=== PATIENT | male | born 1980 | race African-American/Black ===

== ENCOUNTER 2025-05-02 16:32 | Inpatient (IN) | payer OTHER ==
[~2025-05-02] VITALS: Ht 185.4 cm; Wt 88.0 kg
[~2025-05-02 16:32] MED LIST: ALBU6.7H15 INH; AMLO10TA80 PO; ASPI-1406 PO; ATOR20TA PO; HYDR100T11 PO; INSHUMSS SUBCUT; INSU100I28 SQ; LABE100T9 PO; LOSA50TA41 PO
[2025-05-02] MEDS ORDERED: BLOOD SUGAR DIAGNOSTIC STRIP TEST PRN (17:00)
[2025-05-02] MEDS ORDERED: INSULIN REGULAR (DRIP) 100 UNITS in SODIUM CHLORIDE 0.9% 99 ML IV SCH (17:00)
[2025-05-02] MEDS ORDERED: SODIUM PHOSPHATE 15 MMOL in SODIUM CHLORIDE 0.9% 245 ML IV PRN (17:00)
[2025-05-02] MEDS ORDERED: DEXTROSE 50% WATER 50ML SYRINGE IV PRN (17:00)
[2025-05-02] MEDS ORDERED: POTASSIUM CHLORIDE 40 MEQ in SODIUM CHLORIDE 0.9% 230 ML IV PRN (17:00)
[2025-05-02] MEDS: DEXT 5%/0.9% NACL 1,000 ML IV SCH (17:00)
[2025-05-02] MEDS ORDERED: MAGNESIUM 2 G PREMIX 50 ML IV PRN (17:00)
[2025-05-02] MEDS: BLOOD SUGAR DIAGNOSTIC STRIP TEST SCH ×2 (17:07)
[2025-05-02] MEDS: LACTATED RINGERS IV ONE (17:18)
[2025-05-02] MEDS: SODIUM CHLORIDE 0.9% 1,000 ML IV SCH (17:30)
[2025-05-02 18:08] LABS: HEMATOCRIT. 49.6 % (42.0-52.0); HEMOGLOBIN. 15.3 g/dL (14.0-18.0); MEAN PLATELET VOLUME 10.4 fl (7.4-10.4); PLATELET 183 x1000/uL (130-400); RED BLOOD CELL COUNT 5.89 mill/uL (4.7-6.1); RED CELL DISTRIBUTION WIDTH 18.1 % (11.6-14.6)
[2025-05-02] MEDS ORDERED: CLONIDINE 0.2MG TABLET PO ONE (18:15)
[2025-05-02] MEDS: HYDRALAZINE 20MG/ML VIAL IV ONE (18:18)
[2025-05-02] MEDS: CLONIDINE 0.1MG TABLET PO SCH (18:29)
[2025-05-02] MEDS ORDERED: CLONIDINE 0.1MG TABLET PO ONE (18:30)
[2025-05-02 18:51] LABS: UREA NITROGEN BLOOD 63 mg/dL (9-23)
[2025-05-02] MEDS: LABETALOL 5MG/ML 4ML INJ IV ONE (18:51)
[2025-05-02 18:53] LABS: BILIRUBIN TOTAL 0.4 mg/dL (0.1-1.0); PHOSPHORUS 7.5 mg/dL (2.5-4.9); PROTEIN TOTAL 8.6 g/dL (6.0-8.3)
[2025-05-02] MEDS: INSULIN REGULAR 100U/100ML PMX 100 ML IV SCH (18:57)
[2025-05-02 19:04] LABS: BG BASE EXCESS -18.7 mmol/L (-2.0-3.0); BG CARBOXYHEMOGLOBIN 0.7 % (0.5-1.5); BG DEOXYHEMOGLOBIN 1.7 % (0.0-5.0); BG FRACTION INSPIRED OXYGEN 21; BG HCO3 ACT 5.2 mmol/L (21.0-28.0); BG METHEMOGLOBIN 0.2 % (0.5-1.5); BG OXYGEN SATURATION 98.3 % (94.0-98.0); BG OXYHEMOGLOBIN 97.4 % (94.0-98.0); BG PCO2 12.0 mmHg (35.0-48.0); BG PH 7.258 (7.350-7.450); BG PO2 126.9 mmHg (83.0-108.0); BG SAMPLE SITE RIGHT RADIAL; BG TOTAL HEMOGLOBIN 15.2 g/dL (13.5-17.5); BG VENT MODE ROOM AIR
[2025-05-02] MEDS: KCL 20MEQ/100ML PREMIX 100 ML IV PRN (19:04)
[2025-05-02 19:07] LABS: ASPARTATE AMINOTRANSFERASE < 8 IU/L (<34); CREATININE 3.7 mg/dL (0.6-1.3)
[2025-05-02 19:18] LABS: LYMPHOCYTES % MANUAL 6.0 % (20.0-50.0); MONOCYTES % MANUAL 9.0 % (2.0-8.0); NEUTROPHILS % MANUAL 85.0 % (45.0-75.0); PLATELET ESTIMATE NORMAL
[2025-05-02 23:01] VITALS: BP 145/105; PULSE 104; RESP 24; TEMP 37.5; O2SAT 97
[2025-05-02 23:15] VITALS: BP 139/97; PULSE 106; RESP 25; O2SAT 98
[2025-05-02 23:30] VITALS: BP 156/103; PULSE 108; RESP 25; O2SAT 98
[2025-05-03] VITALS (82 sets, daily range): BP systolic 88–185; BP diastolic 61–124; PULSE 101–127; RESP 9–43; TEMP 36.6–37.53; O2SAT 91–99
[2025-05-03] MEDS ORDERED: MAGNESIUM/ALUMINUM HYDROXIDE/SIMETHICONE 30ML UDC PO PRN (00:15)
[2025-05-03] MEDS ORDERED: ONDANSETRON HCL 4MG/2ML INJ IV PRN (00:15)
[2025-05-03] MEDS ORDERED: BLOOD SUGAR DIAGNOSTIC STRIP TEST PRN ×2 (00:15→08:00)
[2025-05-03] MEDS ORDERED: DEXTROSE 50% WATER 50ML SYRINGE IV PRN (00:15)
[2025-05-03] MEDS ORDERED: DOCUSATE SODIUM 100MG CAPSULE PO PRN (00:15)
[2025-05-03] MEDS ORDERED: POTASSIUM CHLORIDE 40 MEQ in SODIUM CHLORIDE 0.9% 230 ML IV PRN (00:15)
[2025-05-03] MEDS: BLOOD SUGAR DIAGNOSTIC STRIP TEST SCH ×2 (00:30→09:31)
[2025-05-03] MEDS: SODIUM CHLORIDE 0.9% 1,000 ML IV SCH (00:33)
[2025-05-03 00:59] LABS: CREATININE 2.9 mg/dL (0.6-1.3); UREA NITROGEN BLOOD 61 mg/dL (9-23)
[2025-05-03 01:01] LABS: PHOSPHORUS 2.4 mg/dL (2.5-4.9)
[2025-05-03] MEDS: INSULIN REGULAR 100U/100ML PMX 100 ML IV SCH (02:50)
[2025-05-03] MEDS: DEXT 5%/0.9% NACL 1,000 ML IV SCH (05:30)
[2025-05-03] MEDS: KCL 20MEQ/100ML PREMIX 100 ML IV PRN (05:38)
[2025-05-03 07:28] LABS: PHOSPHORUS 1.7 mg/dL (2.5-4.9)
[2025-05-03] MEDS: ENOXAPARIN 30MG/0.3ML SYR SUBCUT SCH (08:23)
[2025-05-03] MEDS: CLONIDINE 0.1MG TABLET PO PRN (08:23)
[2025-05-03] MEDS: POTASSIUM CHLORIDE 20MEQ TABLET SR PO PRN (08:56)
[2025-05-03 10:48] LABS: BG BASE EXCESS -4.4 mmol/L (-2.0-3.0); BG CARBOXYHEMOGLOBIN 1.0 % (0.5-1.5); BG DEOXYHEMOGLOBIN 5.6 % (0.0-5.0); BG FRACTION INSPIRED OXYGEN 21; BG HCO3 ACT 18.5 mmol/L (21.0-28.0); BG METHEMOGLOBIN 0.1 % (0.5-1.5); BG OXYGEN SATURATION 94.3 % (94.0-98.0); BG OXYHEMOGLOBIN 93.3 % (94.0-98.0); BG PCO2 28.7 mmHg (35.0-48.0); BG PH 7.428 (7.350-7.450); BG PO2 68.4 mmHg (83.0-108.0); BG SAMPLE SITE RIGHT RADIAL; BG TOTAL HEMOGLOBIN 13.8 g/dL (13.5-17.5); BG VENT MODE ROOM AIR
[2025-05-03] MEDS: SODIUM PHOSPHATE 15 MMOL in SODIUM CHLORIDE 0.9% 245 ML IV PRN (10:51)
[2025-05-03] MEDS ORDERED: LIDOCAINE HCL 1% 10 MG/ML 10ML VIAL ONE (11:18)
[2025-05-03 11:52] LABS: HEMATOCRIT. 42.1 % (42.0-52.0); HEMOGLOBIN. 14.0 g/dL (14.0-18.0); MEAN PLATELET VOLUME 9.4 fl (7.4-10.4); PLATELET 134 x1000/uL (130-400); RED BLOOD CELL COUNT 5.49 mill/uL (4.7-6.1); RED CELL DISTRIBUTION WIDTH 16.6 % (11.6-14.6)
[2025-05-03] MEDS: LABETALOL HCL 100MG TABLET PO SCH ×2 (14:03→20:18)
[2025-05-03] MEDS: DEXT 5%/0.45% NACL 1000ML 1,000 ML IV SCH (14:17)
[2025-05-03] MEDS ORDERED: HYDRALAZINE 20MG/ML VIAL IV NR (15:30)
[2025-05-03] MEDS: LOSARTAN 50 MG TABLET PO SCH (16:17)
[2025-05-03] MEDS: AMLODIPINE 10MG TABLET PO SCH (16:18)
[2025-05-03] MEDS: HYDROCODONE/ACETAMINOPHEN 5/325MG TABLET PO PRN (16:47)
[2025-05-03 17:36] LABS: PHOSPHORUS 1.6 mg/dL (2.5-4.9)
[2025-05-03] MEDS: ATORVASTATIN CALCIUM 20MG TABLET PO SCH (20:17)
[2025-05-03 21:09] LABS: PHOSPHORUS 0.9 mg/dL (2.5-4.9)
[2025-05-03] MEDS: HYDRALAZINE HCL 100MG TABLET PO SCH (21:39)
[2025-05-04] VITALS (102 sets, daily range): BP systolic 83–132; BP diastolic 45–90; PULSE 100–134; RESP 13–45; TEMP 36.2–38; O2SAT 89–100
[2025-05-04 01:38] LABS: PHOSPHORUS 1.8 mg/dL (2.5-4.9)
[2025-05-04] MEDS: MAGNESIUM 2 G PREMIX 50 ML IV PRN (02:46)
[2025-05-04] MEDS: POTASSIUM PHOSPHATE 15 MMOL in DEXT 5% WATER 245 ML IV NR ×2 (03:30→14:03)
[2025-05-04] MEDS: IPRATROPIUM/ALBUTEROL 0.5-3(2.5)MG/3ML NEB HHN PRN ×2 (04:30→14:55)
[2025-05-04 07:22] LABS: UREA NITROGEN BLOOD 35 mg/dL (9-23)
[2025-05-04 07:24] LABS: PHOSPHORUS 1.4 mg/dL (2.5-4.9)
[2025-05-04 07:28] LABS: T4 FREE 0.88 ng/dL (0.89-1.76)
[2025-05-04 07:57] LABS: CREATININE 1.6 mg/dL (0.6-1.3)
[2025-05-04] MEDS: ACETAMINOPHEN 325MG TABLET PO PRN (08:16)
[2025-05-04] MEDS: ASPIRIN 81MG EC TABLET PO SCH (08:16)
[2025-05-04 10:41] LABS: CREATININE 1.5 mg/dL (0.6-1.3); UREA NITROGEN BLOOD 35 mg/dL (9-23)
[2025-05-04 10:42] LABS: PHOSPHORUS 1.4 mg/dL (2.5-4.9)
[2025-05-04 11:30] LABS: BAND% 42.0 % (1.0-6.0); LYMPHOCYTES % MANUAL 12.0 % (20.0-50.0); MONOCYTES % MANUAL 7.0 % (2.0-8.0); NEUTROPHILS % MANUAL 39.0 % (45.0-75.0); PLATELET ESTIMATE NORMAL
[2025-05-04] MEDS: SODIUM CHLORIDE 0.45% 1,000 ML IV PRN (17:35)
[2025-05-04] MEDS: HYDROCODONE/ACETAMINOPHEN 10/325MG TABLET PO PRN (17:53)
[2025-05-04] MEDS: IPRATROPIUM/ALBUTEROL 0.5-3(2.5)MG/3ML NEB HHN SCH (20:20)
[2025-05-04] MEDS ORDERED: SODIUM CHLORIDE 10% FOR INH 15ML NEB INH SCH (23:30)
[2025-05-05] VITALS (94 sets, daily range): BP systolic 89–150; BP diastolic 61–100; PULSE 110–137; RESP 12–39; TEMP 36.6–37; O2SAT 84–99
[2025-05-05 00:29] LABS: PHOSPHORUS 2.1 mg/dL (2.5-4.9)
[2025-05-05] MEDS: DOXYCYCLINE 100MG/100ML 100 ML IV SCH (01:04)
[2025-05-05] MEDS: CEFTRIAXONE 1GM/50ML 50 ML IV NR (01:04)
[2025-05-05 03:46] LABS: CLARITY URINE TURBID (CLEAR); COLOR URINE YELLOW (YELLOW); PH URINE 5.0 (4.5-8.0); SPECIFIC GRAVITY URINE 1.013 (1.005-1.030)
[2025-05-05 03:47] LABS: PROTEIN URINE 1+ (NEGATIVE)
[2025-05-05 03:49] LABS: GLUCOSE URINE NEGATIVE (NEGATIVE); KETONES URINE NEGATIVE (NEGATIVE)
[2025-05-05 03:50] LABS: LEUKOCYTE ESTERASE URINE 3+ (NEGATIVE); NITRITE URINE NEGATIVE (NEGATIVE); OCCULT BLOOD URINE 2+ (NEGATIVE); UROBILINOGEN URINE 0.2 E.U./dL (0.2-1.0)
[2025-05-05 03:51] LABS: BACTERIA URINE 3+; SQUAMOUS EPITHELIAL CELL URINE RARE /lpf (RARE/1+); WBC URINE 25-50 /hpf (0-2)
[2025-05-05 06:01] LABS: SODIUM URINE RANDOM 46.0 mEq/L
[2025-05-05 06:08] LABS: CREATININE URINE RANDOM 64.0 mg/dL; UREA NITROGEN URINE RANDOM 478.0 mg/dL
[2025-05-05] MEDS: SODIUM BICARBONATE 8.4% 50MEQ/50ML SYR IV SCH (07:37)
[2025-05-05 08:51] LABS: OSMOLALITY URINE 377.0 mOsm/kg (500-850)
[2025-05-05 10:10] LABS: PLATELET 78 x1000/uL (130-400); RED BLOOD CELL COUNT 4.52 mill/uL (4.7-6.1); RED CELL DISTRIBUTION WIDTH 17.3 % (11.6-14.6)
[2025-05-05 10:34] LABS: CREATININE 1.6 mg/dL (0.6-1.3); UREA NITROGEN BLOOD 33 mg/dL (9-23)
[2025-05-05 10:36] LABS: PHOSPHORUS 2.9 mg/dL (2.5-4.9)
[2025-05-05] MEDS: MORPHINE SULFATE 2 MG/ML INJ (NOT FOR IM USE) IV PRN (11:12)
[2025-05-05] MEDS ORDERED: IPRATROPIUM/ALBUTEROL 0.5-3(2.5)MG/3ML NEB HHN PRN (12:30)
[2025-05-05 13:03] LABS: BG BASE EXCESS -7.6 mmol/L (-2.0-3.0); BG CARBOXYHEMOGLOBIN 0.3 % (0.5-1.5); BG DEOXYHEMOGLOBIN 12.2 % (0.0-5.0); BG FLOW(L/min) 6.00 L/min; BG FRACTION INSPIRED OXYGEN 44; BG HCO3 ACT 16.5 mmol/L (21.0-28.0); BG METHEMOGLOBIN 0.3 % (0.5-1.5); BG OXYGEN SATURATION 87.7 % (94.0-98.0); BG OXYHEMOGLOBIN 87.2 % (94.0-98.0); BG PCO2 29.5 mmHg (35.0-48.0); BG PH 7.366 (7.350-7.450); BG PO2 52.6 mmHg (83.0-108.0); BG SAMPLE SITE RIGHT RADIAL; BG TOTAL HEMOGLOBIN 11.5 g/dL (13.5-17.5); BG VENT MODE NASAL CANNULA
[2025-05-05] MEDS ORDERED: NALOXONE HCL 0.4MG/ML VIAL IV PRN (15:00)
[2025-05-05] MEDS ORDERED: HYDROCODONE/ACETAMINOPHEN 5/325MG TABLET PO PRN (15:00)
[2025-05-05] MEDS: ACETYLCYSTEINE 200MG/ML 20% VIAL 4ML INH SCH (16:30)
[2025-05-05] MEDS: INSULIN REGULAR 100U/100ML PMX 100 ML IV SCH (18:20)
[2025-05-05] MEDS ORDERED: HYDROCODONE/ACETAMINOPHEN 10/325MG TABLET PO PRN (18:30)
[2025-05-05] MEDS: CEFTRIAXONE 1GM/50ML 50 ML IV SCH (20:06)
[2025-05-05] MEDS: MAGNESIUM/ALUMINUM HYDROXIDE/SIMETHICONE 30ML UDC PO PRN (22:03)
[2025-05-05 22:42] LABS: PLATELET 83 x1000/uL (130-400); RED BLOOD CELL COUNT 4.50 mill/uL (4.7-6.1); RED CELL DISTRIBUTION WIDTH 17.5 % (11.6-14.6)
[2025-05-05 22:52] LABS: CREATININE 1.4 mg/dL (0.6-1.3); UREA NITROGEN BLOOD 28 mg/dL (9-23)
[2025-05-05 22:54] LABS: PHOSPHORUS 2.8 mg/dL (2.5-4.9)
[2025-05-05] MEDS: LIDOCAINE 5% PATCH TOP SCH (23:46)
[2025-05-06] VITALS (95 sets, daily range): BP systolic 90–156; BP diastolic 67–115; PULSE 107–136; RESP 13–34; TEMP 36.3–37; O2SAT 89–100
[2025-05-06] MEDS: HYDROMORPHONE HCL/PF 1MG/ML INJ IV SCH (00:48)
[2025-05-06 01:28] LABS: BG BASE EXCESS -6.4 mmol/L (-2.0-3.0); BG CARBOXYHEMOGLOBIN 0.8 % (0.5-1.5); BG DEOXYHEMOGLOBIN 3.6 % (0.0-5.0); BG FLOW(L/min) 30.00 L/min; BG FRACTION INSPIRED OXYGEN 80; BG HCO3 ACT 17.2 mmol/L (21.0-28.0); BG METHEMOGLOBIN 0.0 % (0.5-1.5); BG OXYGEN SATURATION 96.4 % (94.0-98.0); BG OXYHEMOGLOBIN 95.6 % (94.0-98.0); BG PCO2 29.0 mmHg (35.0-48.0); BG PH 7.391 (7.350-7.450); BG PO2 84.1 mmHg (83.0-108.0); BG SAMPLE SITE LEFT RADIAL; BG TOTAL HEMOGLOBIN 12.8 g/dL (13.5-17.5); BG VENT MODE HIGH FLOW
[2025-05-06] MEDS: BLOOD SUGAR DIAGNOSTIC STRIP TEST SCH (02:28)
[2025-05-06 06:07] LABS: HEMATOCRIT. 32.7 % (42.0-52.0); HEMOGLOBIN. 10.7 g/dL (14.0-18.0); MEAN PLATELET VOLUME 9.7 fl (7.4-10.4); PLATELET 78 x1000/uL (130-400); RED BLOOD CELL COUNT 4.22 mill/uL (4.7-6.1); RED CELL DISTRIBUTION WIDTH 17.8 % (11.6-14.6)
[2025-05-06 06:29] LABS: CREATININE 1.4 mg/dL (0.6-1.3)
[2025-05-06 06:31] LABS: UREA NITROGEN BLOOD 30 mg/dL (9-23)
[2025-05-06 06:33] LABS: PHOSPHORUS 3.9 mg/dL (2.5-4.9)
[2025-05-06] MEDS ORDERED: ALBUTEROL (0.5%) 2.5MG/0.5ML NEB HHN NR (07:15)
[2025-05-06] MEDS: SODIUM BICARBONATE 650MG TABLET PO SCH (09:29)
[2025-05-06] MEDS: SODIUM ZIRCONIUM CYCLOSILICATE 10GM/PACKET PO NR (09:31)
[2025-05-06 10:17] LABS: BAND% 18.0 % (1.0-6.0); LYMPHOCYTES % MANUAL 7.0 % (20.0-50.0); METAMYELOCYTES % 3.0 % (0-0); MONOCYTES % MANUAL 6.0 % (2.0-8.0); NEUTROPHILS % MANUAL 66.0 % (45.0-75.0)
[2025-05-06 10:19] LABS: PLATELET ESTIMATE DECREASED
[2025-05-06 15:14] LABS: CREATININE 1.4 mg/dL (0.6-1.3)
[2025-05-06 15:15] LABS: UREA NITROGEN BLOOD 31 mg/dL (9-23)
[2025-05-06 15:17] LABS: PHOSPHORUS 4.0 mg/dL (2.5-4.9)
[2025-05-06] MEDS: DOXYCYCLINE HYCLATE 100MG CAPSULE PO SCH (15:26)
[2025-05-06] MEDS: CEFTRIAXONE SODIUM 1G VIAL IM SCH (16:04)
[2025-05-06 19:36] LABS: PHOSPHORUS 4.0 mg/dL (2.5-4.9)
[2025-05-06] MEDS: IPRATROPIUM BROMIDE (0.02%) 0.5MG/2.5ML NEB HHN SCH (21:40)
[2025-05-07] VITALS (83 sets, daily range): BP systolic 98–137; BP diastolic 66–93; PULSE 103–127; RESP 17–32; TEMP 36.6–37.6; O2SAT 91–98
[2025-05-07 02:19] LABS: CREATININE 1.6 mg/dL (0.6-1.3); UREA NITROGEN BLOOD 30.0 mg/dL (9-23)
[2025-05-07 07:16] LABS: CREATININE 1.4 mg/dL (0.6-1.3); UREA NITROGEN BLOOD 28 mg/dL (9-23)
[2025-05-07 07:18] LABS: PHOSPHORUS 2.9 mg/dL (2.5-4.9)
[2025-05-07 09:07] LABS: FOLICLE STIMULATING HORMONE 14.4 mIU/mL (1.5-12.4); LUTEINIZING HORMONE 15.2 mIU/mL (1.7-8.6); PROLACTIN 11.7 ng/mL (3.9-22.7)
[2025-05-07] MEDS: LABETALOL 5MG/ML 4ML INJ IV PRN (09:24)
[2025-05-07 09:41] LABS: BG BASE EXCESS -5.6 mmol/L (-2.0-3.0); BG CARBOXYHEMOGLOBIN 0.3 % (0.5-1.5); BG DEOXYHEMOGLOBIN 7.1 % (0.0-5.0); BG FLOW(L/min) 30.00 L/min; BG FRACTION INSPIRED OXYGEN 60; BG HCO3 ACT 17.9 mmol/L (21.0-28.0); BG METHEMOGLOBIN 0.3 % (0.5-1.5); BG OXYGEN SATURATION 92.9 % (94.0-98.0); BG OXYHEMOGLOBIN 92.3 % (94.0-98.0); BG PCO2 29.0 mmHg (35.0-48.0); BG PH 7.409 (7.350-7.450); BG PO2 64.9 mmHg (83.0-108.0); BG SAMPLE SITE RIGHT RADIAL; BG TOTAL HEMOGLOBIN 11.3 g/dL (13.5-17.5); BG VENT MODE HIGH FLOW
[2025-05-07 13:27] LABS: CREATININE 1.2 mg/dL (0.6-1.3); TROPONIN I HIGH SENSITIVITY 14 ng/L (3.0-53); UREA NITROGEN BLOOD 25 mg/dL (9-23)
[2025-05-07] MEDS: SERTRALINE HCL 25MG TABLET PO SCH (14:51)
[2025-05-07] MEDS: ALBUTEROL (0.083%) 2.5MG/3ML NEB HHN PRN (15:39)
[2025-05-07] MEDS: MEROPENEM 1G/100ML 100 ML IV SCH (18:29)
[2025-05-07] MEDS: ENOXAPARIN 40MG/0.4ML SYR SUBCUT SCH (18:29)
[2025-05-10 04:09] LABS: TESTOSTERONE FREE 14.6 pg/mL (6.8-21.5)
== END 2025-05-07 23:00 | disposition left against medical advice (07) | DRG 720 ==
LOC: ER 16:32 → EDBEDREQSVC 19:55 → MICUSO 20:11 → EDBEDREQ 20:32 → EDBEDREQTM 20:32 → ENRESERV 22:26 → ER 22:37
PROVIDERS: ADMIT Family Medicine Adult Medicine; ATTEND Family Medicine Adult Medicine
PROC: 05HY33Z Insertion of Infusion Device into Upper Vein, Percutaneous Approach (ICD-10-PCS; 2025-05-03)
PROC: B54MZZA Ultrasonography of Right Upper Extremity Veins, Guidance (ICD-10-PCS; 2025-05-03)
PROC: 5A0945A Assistance with Respiratory Ventilation, 24-96 Consecutive Hours, High Flow/Velocity Cannula (ICD-10-PCS; principal; 2025-05-05)
DX: A41.9 Sepsis, unspecified organism (principal); N17.0 Acute kidney failure with tubular necrosis; J96.01 Acute respiratory failure with hypoxia; G93.41 Metabolic encephalopathy; E11.10 Type 2 diabetes mellitus with ketoacidosis without coma; L89.153 Pressure ulcer of sacral region, stage 3; D69.6 Thrombocytopenia, unspecified; J18.9 Pneumonia, unspecified organism; R65.20 Severe sepsis without septic shock; E87.0 Hyperosmolality and hypernatremia; I42.9 Cardiomyopathy, unspecified; E83.39 Other disorders of phosphorus metabolism; E86.0 Dehydration; E83.52 Hypercalcemia; N18.9 Chronic kidney disease, unspecified; E11.22 Type 2 diabetes mellitus with diabetic chronic kidney disease; E78.5 Hyperlipidemia, unspecified; J45.909 Unspecified asthma, uncomplicated; E87.5 Hyperkalemia; N39.0 Urinary tract infection, site not specified; B96.89 Other specified bacterial agents as the cause of diseases classified elsewhere; I13.10 Hypertensive heart and chronic kidney disease without heart failure, with stage 1 through stage 4 chronic kidney disease, or unspecified chronic kidney disease; F41.9 Anxiety disorder, unspecified; I16.0 Hypertensive urgency; D72.825 Bandemia; F32.A Depression, unspecified; F17.210 Nicotine dependence, cigarettes, uncomplicated; T38.3X6A Underdosing of insulin and oral hypoglycemic [antidiabetic] drugs, initial encounter; Z91.128 Patient's intentional underdosing of medication regimen for other reason; Z79.4 Long term (current) use of insulin; Z79.899 Other long term (current) drug therapy; Z91.148 Patient's other noncompliance with medication regimen for other reason
CPT/HCPCS: 36415; 36573; 36600; 71045; 71250; 76770; 80048; 80051; 80053; 81003; 82024; 82375; 82533; 82570; 82805; 82962; 83001; 83002; 83036; 83519; 83605; 83735; 83930; 83935; 84100; 84145; 84146; 84300; 84402; 84403; 84439; 84443; 84484; 84540; 84681; 85025; 85027; 85379; 87077; 87106; 87186; 93005; 93970; 94070; 94640; 94664; 94667; 97162; 99291; A4606; A6261; C1725; C1892; J0360; J0696; J1171; J1650; J1815; J2003; J2185; J2270; J3475; J3480; J3490; J7030; J7042; J7050; J7060; J7120; J7131; J7608